=== PATIENT | female | born 1970 | race Caucasian/White ===

== ENCOUNTER 2021-08-07 16:26 | Outpatient (REF) | payer OTHER, SELFPAY ==
--- NOTE | ~2021-08-07 | XR_ITS ---
EXAMINATION: THORACIC AND LUMBAR SPINE CLINICAL INFORMATION: Back pain COMPARISON: Chest radiograph 05/26/2010 TECHNIQUE: 3 views thoracic spine, 3 views lumbar spine FINDINGS: There is a minimal thoracolumbar biconvex scoliosis present. Some minimal spondylitic endplate changes are present in the thoracic spine disc spaces and vertebral heights are well-maintained. No fracture is seen. Paraspinal soft tissues appear normal. The visualized lungs are unremarkable. Some minimal degenerative changes present at L5-S1. Spina bifida occulta is present at S1. Vertebral heights and disc spaces are well preserved. No fracture seen. XR/XR thoracic spine 3V IMPRESSION: No significant abnormality is detected.
--- NOTE | ~2021-08-07 | XR_ITS ---
EXAMINATION: THORACIC AND LUMBAR SPINE CLINICAL INFORMATION: Back pain COMPARISON: Chest radiograph 05/26/2010 TECHNIQUE: 3 views thoracic spine, 3 views lumbar spine FINDINGS: There is a minimal thoracolumbar biconvex scoliosis present. Some minimal spondylitic endplate changes are present in the thoracic spine disc spaces and vertebral heights are well-maintained. No fracture is seen. Paraspinal soft tissues appear normal. The visualized lungs are unremarkable. Some minimal degenerative changes present at L5-S1. Spina bifida occulta is present at S1. Vertebral heights and disc spaces are well preserved. No fracture seen. XR/XR lumbar spine 2-3V IMPRESSION: No significant abnormality is detected.
== END 2021-08-07 16:27 | disposition home or self-care (01) ==
LOC: HO.HMGCX 16:26
PROVIDERS: PCP Nurse Practitioner Family; Visit Provider Internal Medicine
DX: G89.29 Other chronic pain (principal); M54.9 Dorsalgia, unspecified
CPT/HCPCS: 72072; 72100